=== PATIENT | female | born 1950 | race Caucasian/White ===

== ENCOUNTER → 2016-07-23 | Outpatient (CLI) | payer OTHER ==
[~2016-07-23] MED LIST: ASCO1CAP3 PO; ASPI325T45 PO; B-CO1CAP3 PO; CHOLCAP5 PO; DIAZ5TAB PO; EYE; EYED; FAMO20TA9 PO; LATA0.009 OPB; MAGN1TAB19 PO; PRED1SUS3; VGFVS/24 PV; VITA200C5 PO
== END | disposition home or self-care (01) ==
LOC: C.LAB1850 14:48
PROVIDERS: ATTEND Family Medicine
DX: M35.3 Polymyalgia rheumatica (principal)

== ENCOUNTER → 2016-09-10 | Outpatient (CLI) | payer OTHER | END | disposition home or self-care (01) | LOC: C.LAB1850 14:23 | PROVIDERS: ATTEND Family Medicine | DX: M35.3 Polymyalgia rheumatica (principal) ==

== ENCOUNTER → 2016-11-20 | Outpatient (CLI) | payer OTHER | END | disposition home or self-care (01) | LOC: C.LAB1850 13:54 | PROVIDERS: ATTEND Family Medicine | DX: M35.3 Polymyalgia rheumatica (principal) ==

== ENCOUNTER → 2016-12-12 | Outpatient (CLI) | payer OTHER ==
--- NOTE | 2016-12-13 14:34 | MAMMOGRAPHY REPORT ---
BILATERAL DIGITAL SCREENING MAMMOGRAM WITH CAD: 12/12/2016 CLINICAL HISTORY: Routine screening. TECHNIQUE: Bilateral CC and MLO views were obtained. Current study was also evaluated with a Compute r Aided Detection (CAD) system. COMPARISON: Comparison is made to exams dated: 11/21/2015 mammogram, 11/15/2014 mammogram, 11/10/2013 rhea mogram, 11/03/2012 mammogram, 10/29/2011 mammogram, and 10/23/2010 mammogram - [facility]. BREAST COMPOSITION: The tissue of both breasts is extremely dense, which lowers the sensitivity of m ammography. FINDINGS: There are several bilateral benign-appearing calcifications. Stable scattered and grouped punctate microcalcifications in the lateral left breast. No suspicious mass, architectural distortio n or cluster of suspicious microcalcifications is seen. IMPRESSION: ACR BI-RADS CATEGORY 1: NEGATIVE There is no mammographic evidence of malignancy. A 1 year screening mammogram is recommended. The pa tient will receive written notification of the results. Approximately 10% of breast cancers are not detected with mammography. A negative mammographic report should not delay biopsy if a clinically suggestive mass is present. Nicole Weiss M.D. ay/:12/12/2016 16:19:35 [employer] Production: Angela BRITO(R)(M), [facility] letter sent: Normal 1/2 BI-RADS Code: ACR BI-RADS Category 1: Negative
== END | disposition home or self-care (01) ==
LOC: C.MAMM 13:10
PROVIDERS: ATTEND Obstetrics & Gynecology
DX: Z12.31 Encounter for screening mammogram for malignant neoplasm of breast (principal)

== ENCOUNTER → 2017-02-27 | Outpatient (CLI) | payer OTHER ==
[2017-02-27 17:52] LABS: BLOOD UREA NITROGEN 17 mg/dl (7-18); BUN/CREATININE RATIO 23.9 (10-20); C-REACTIVE PROTEIN < 0.29 mg/dl (0-0.29); CALCIUM 8.7 mg/dl (8.5-10.1); CARBON DIOXIDE 35 mmol/L (21-32); CHLORIDE 98 mmol/L (98-107); CREATININE 0.72 mg/dl (0.60-1.20); GLUCOSE 93 mg/dl (70-99); POTASSIUM 3.4 mmol/L (3.5-5.1); SODIUM 135 mmol/L (136-145)
== END | disposition home or self-care (01) ==
LOC: C.LAB1850 14:47
PROVIDERS: ATTEND Family Medicine
DX: M35.3 Polymyalgia rheumatica (principal); I10 Essential (primary) hypertension

== ENCOUNTER → 2017-04-03 | Outpatient (CLI) | payer OTHER | END | disposition home or self-care (01) | LOC: C.LAB1850 14:31 | PROVIDERS: ATTEND Family Medicine | DX: M35.3 Polymyalgia rheumatica (principal) ==

== ENCOUNTER → 2017-04-12 | Outpatient (CLI) | payer OTHER | END | disposition home or self-care (01) | LOC: C.PAPS 16:17 | PROVIDERS: ATTEND Obstetrics & Gynecology | DX: Z12.4 Encounter for screening for malignant neoplasm of cervix (principal) ==

== ENCOUNTER → 2017-06-07 | Outpatient (CLI) | payer OTHER | END | disposition home or self-care (01) | LOC: C.LAB1850 13:08 | PROVIDERS: ATTEND Family Medicine | DX: M35.3 Polymyalgia rheumatica (principal) ==

== ENCOUNTER → 2017-06-26 | Outpatient (CLI) | payer OTHER | END | disposition home or self-care (01) | LOC: C.LABSPEC 17:07 | PROVIDERS: ATTEND Podiatrist Foot & Ankle Surgery | DX: L60.0 Ingrowing nail (principal) ==

== ENCOUNTER → 2017-07-31 | Outpatient (CLI) | payer OTHER | END | disposition home or self-care (01) | LOC: C.LAB1850 15:01 | PROVIDERS: ATTEND Family Medicine | DX: M35.3 Polymyalgia rheumatica (principal) ==

== ENCOUNTER 2018-01-26 22:46 | Emergency (ER) | payer OTHER ==
[~2018-01-26] VITALS: Ht 157.5 cm; Wt 44.2 kg
[~2018-01-26 22:46] MED LIST changes: +ACET-1256 PO; +ASPECOTC PO; -ASPI325T45 PO; +DORZ1SOL6 OPL; +ESTR10TA3 PO; -EYE; -EYED; +HYDR12.56 PO; -LATA0.009 OPB; +LISI10TA PO; -MAGN1TAB19 PO; +PRED-301 PO; -PRED1SUS3; +VALS-57 PO; -VGFVS/24 PV; -VITA200C5 PO; +VITACAP37 PO; +XLTOPS OPB; +[UNRECOGNIZED DRUG - OTHER] PO
[2018-01-26 22:48] VITALS: TEMP 36.6; Ht 157.5 cm; Wt 44.2 kg
[2018-01-26] MEDS ORDERED: LISI-726 PO (23:06)
[2018-01-26] MEDS ORDERED: LISINOPRIL 20 MG TAB PO STA (23:08)
[2018-01-26] MEDS ORDERED: LABETALOL HCL IV 5 MG/ML 20ML IV STA (23:08)
[2018-01-26] MEDS ORDERED: PRD/1 PO (23:09)
--- NOTE | 2018-01-26 23:25 | EMERGENCY ROOM VISIT NOTE ---
History Report prepared by Lissy: Rafal Samuel Under the Supervision of: Dr. Lucas Marin M.D. First contact with patient: 22:55 Chief Complaint: HYPERTENSION Stated Complaint: HBP History of Present Illness The patient is a 67 year old female who presents to the Emergency Room with complaints of constant hypertension that began today. Patient states she believes her symptoms might be due to missing her morning dose of 20mg Lisinopril. She states she took it this morning with a soda but might have "backwashed it back into the cup". She states she typically takes 20mg in the morning and 20mg in the evening. She states she did take her evening dose. Patient is present with her . He states the patient's blood pressure was "195/110" 3 hours ago prior to taking her evening dose. He states following her evening dose of Lisinopril her blood pressure was "205/117". Patient states she was started on 40mg of Lisinopril 5 days ago after having negative side effects on her other blood pressure medications. Past medical history includes hypertension and "balance issues". Family history includes hypertension and heart attacks. Patient states her father had a heart attack in his "40's". Patient states her last labs were done 2 weeks ago. 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 Patient states she has smoked for the past 40 years. She adds she drinks "one light beer a day" but denies drinking one tonight. Patient denies chest pain, weakness, headaches, swelling, recent falls , abdominal pain, urinary symptoms, and odd chemical exposure. Source of History: patient, spouse/significant other Onset: Today Position: head Timing: intermittent Modifying Factors (Relieving): other (None) Associated Symptoms: No headache, No chest pain, No abdominal pain, No urinary symptoms, No weakness Note: Negative swelling, recent falls, and odd chemical exposure. Review of Systems See HPI for pertinent positives & negatives. A total of 10 systems reviewed and were otherwise negative. Past Medical & Surgical Medical Problems: (1) HTN (hypertension) Family History FH: heart attack Hypertension Social History Smoking Status: Light Tobacco Smoker Marital Status: Housing Status: lives with family Occupation Status: employed Current/Historical Medications Scheduled Ascorbic Acid (Vitamin C), 1-2 CAP PO QAM Aspirin (Aspirin), 1 TAB PO QAM B-Complex Vitamins (B Complex), 1 CAP PO QPM Cholecalciferol (Vitamin D3), 1 CAP PO DAILY Diazepam (Valium), 2.5 MG PO HS Dorzolamide Hcl-Timolol Maleat (Cosopt Oph), 1 DROPS OPL DAILY Estradiol Vaginal (Yuvafem), 1 TAB PO 2XWK Famotidine (Pepcid), 20 MG PO DAILY Hydrochlorothiazide (Hctz), 12.5 MG PO DAILY Latanoprost (Latanoprost), 1 DROP OPB DAILY Lisinopril (Lisinopril), 20 MG PO BID Prednisone (Prednisone), 4 MG PO DAILY Valsartan (Valsartan), 80 MG PO DAILY Vitamin E (E-400), 400 UNITS PO DAILY Allergies Coded Allergies: Copper Chloride (Verified Allergy, Severe, RED PUSTULES AT SITE, 01/26/18) Adhesives (Verified Allergy, Unknown, RASH, 01/26/18) Metronidazole (Verified Allergy, Unknown, NAUSEA AND VOMITING, 01/26/18) Uncoded Allergies: NICKEL (Allergy, Severe, PUSTULES AT SITE, 11/29/17) Physical Exam Vital Signs Date Time Temp Pulse Resp B/P (MAP) Pulse Ox O2 Delivery O2 Flow Rate FiO2 01/27/18 00:58 68 18 181/86 98 01/26/18 23:56 72 170/92 01/26/18 23:38 77 18 179/90 97 Room Air 01/26/18 23:29 88 01/26/18 22:48 36.6 105 16 198/115 99 Room Air Physical Exam GENERAL: Patient is well appearing, smells heavily of tobacco smoke, and is mildly anxious. EYES: No scleral icterus, unremarkable pupils. ENT: Mucous membranes moist, no nasal congestion. NECK: No masses appreciated, no meningismus, trachea is midline. RESPIRATORY: No dyspnea. Clear to auscultation and equal bilaterally. No wheeze , no rhonchi. CARDIOVASCULAR: Regular rate and rhythm. No murmurs, rubs, gallops appreciated. GASTROINTESTINAL: Abdomen soft, nontender, no peritonitis. Bowel sounds positive. No masses appreciated. BACK: No midline tenderness, no CVA tenderness EXTREMITIES: Normal motion all extremities, no cyanosis, no edema. NEUROLOGIC: Alert and oriented, no acute motor or sensory deficits, no focal weakness, cranial nerves grossly intact. SKIN: No rash, no jaundice, no diaphoresis. Medical Decision & Procedures Laboratory Results 01/26/18 23:32 Red Blood Count 5.21, Mean Corpuscular Volume 93.9, Mean Corpuscular Hemoglobin 33.4, Mean Corpuscular Hemoglobin Concent 35.6, Mean Platelet Volume 9.7, Neutrophils (%) (Auto) 59.9, Lymphocytes (%) (Auto) 20.7, Monocytes (%) (Auto) 16.7, Eosinophils (%) (Auto) 1.6, Basophils (%) (Auto) 1.0, Neutrophils # (Auto ) 4.91, Lymphocytes # (Auto) 1.70, Monocytes # (Auto) 1.37, Eosinophils # (Auto ) 0.13, Basophils # (Auto) 0.08 01/26/18 23:32 Test 01/26/18 23:32 White Blood Count 8.20 K/uL (4.8-10.8) Red Blood Count 5.21 M/uL (4.2-5.4) Hemoglobin 17.4 g/dL (12.0-16.0) Hematocrit 48.9 % (37-47) Mean Corpuscular Volume 93.9 fL (80-100) Mean Corpuscular Hemoglobin 33.4 pg (25-34) Mean Corpuscular Hemoglobin Concent 35.6 g/dl (32-36) Platelet Count 287 K/uL (130-400) Mean Platelet Volume 9.7 fL (7.4-10.4) Neutrophils (%) (Auto) 59.9 % Lymphocytes (%) (Auto) 20.7 % Monocytes (%) (Auto) 16.7 % Eosinophils (%) (Auto) 1.6 % Basophils (%) (Auto) 1.0 % Neutrophils # (Auto) 4.91 K/uL (1.4-6.5) Lymphocytes # (Auto) 1.70 K/uL (1.2-3.4) Monocytes # (Auto) 1.37 K/uL (0.11-0.59) Eosinophils # (Auto) 0.13 K/uL (0-0.5) Basophils # (Auto) 0.08 K/uL (0-0.2) RDW Standard Deviation 43.0 fL (36.4-46.3) RDW Coefficient of Variation 12.5 % (11.5-14.5) Immature Granulocyte % (Auto) 0.1 % Immature Granulocyte # (Auto) 0.01 K/uL (0.00-0.02) Anion Gap 7.0 mmol/L (3-11) Est Creatinine Clear Calc Drug Dose 59.3 ml/min Estimated GFR () 107.4 Estimated GFR (Non- 92.7 BUN/Creatinine Ratio 14.2 (10-20) Calcium Level 9.2 mg/dl (8.5-10.1) Total Bilirubin 0.3 mg/dl (0.2-1) Aspartate Amino Transf (AST/SGOT) 18 U/L (15-37) Alanine Aminotransferase (ALT/SGPT) 18 U/L (12-78) Alkaline Phosphatase 68 U/L (45-117) Troponin I < 0.015 ng/ml (0-0.045) Total Protein 7.9 gm/dl (6.4-8.2) Albumin 4.0 gm/dl (3.4-5.0) Globulin 3.9 gm/dl (2.5-4.0) Albumin/Globulin Ratio 1.0 (0.9-2) Laboratory results as reviewed by me. Medications Administered Medications (Trade) Dose Ordered Sig/Ramsey Route Start Time Stop Time Status Last Admin Dose Admin Labetalol HCl (Normodyne IV) 10 mg NOW STAT IV 01/26/18 23:08 01/26/18 23:11 DC 01/26/18 23:08 10 MG Lisinopril (Zestril Tab) 20 mg NOW STAT PO 01/26/18 23:08 01/26/18 23:11 DC 01/26/18 23:36 20 MG Labetalol HCl (Normodyne IV) 10 mg NOW STAT IV 01/27/18 00:30 01/27/18 00:31 DC 01/27/18 00:41 10 MG ECG Per My Interpretation Indication: other (Hypertension) Rate (beats per minute): 91 Rhythm: normal sinus Findings: no acute ischemic change, no ectopy, other (Enlarged P-waves ; QTc = 437) Comparison ECG Date: 12/08/2017 Change: no significant change ED Course 2257: The patient was evaluated in room B8. A complete history and physical exam was performed. 0036: I reevaluated the patient. She currently has a blood pressure of 190/100. She notes she feels fine other than having sinus congestion which states is secondary to the rain we just had. Patient is agreeable to another dose of Labetalol and states she feels comfortable leaving shortly after. I advised the patient to begin taking her Hydrochlorothiazide 12.5mg in the morning. She notes previous side effects to Hydrochlorothiazide were just due to her not feeling herself and states she was on it for years prior. Patient believes she has an appointment with her PCP next week. She is agreeable to returning to the ER or calling 911 if she begins experiencing headaches, weakness, chest pain, SOB, or other concerns. Patient has a follow-up appointment with neurology tomorrow morning. Discussed results and discharge instructions. She verbalized understanding and agreement. Medical Decision Differential: Benign Hypertension, Hypertensive Urgency/Emergency, Cardiovascular Pathology, Endocrine, Metabolic/Electrolyte, Renal Disease, End- organ Damage, amongst other pathologies entertained. 67 yr old female with long history of HTN who likely missed morning dose lisinopril and is now quite hypertensive without any symptoms. EKG unchanged, labs unremarkable and she looks well. BP coming down nicely and given extra dose lisinopril here. She is feeling well and wishing to get home. She is adamant she will not be admitted to hospital. We discussed restarting HCTZ and seeing if that helps with BP as well as for her to monitor for side effects. Reviewed symptoms requiring RTED. Stable and looks well at discharge. Head Trauma GCS Score: 15 Medication Reconcilliation Current Medication List: was personally reviewed by me Blood Pressure Screening Patient's blood pressure: Elevated blood pressure Blood pressure disposition: Referred to PCP Impression Primary Impression: Severe hypertension Scribe Attestation The scribe's documentation has been prepared under my direction and personally reviewed by me in its entirety. I confirm that the note above accurately reflects all work, treatment, procedures, and medical decision making performed by me. Departure Information Dispostion Home / Self-Care Referrals Don Sparks III, M.D. (PCP) Patient Instructions ED Hypertension Conf Out Of Control, My [facility] Additional Instructions Please restart you Hydrochlorothiazide 12.5mg in the morning and take it daily unless side effects develop. Your blood pressure was elevated during this visit. This is quite common in many people who are being evaluated in the Emergency Department for many reasons. However, it is important that you have your Primary Care Provider recheck your blood pressure and discuss whether treatment will be needed. residential elevated blood pressure can lead to strokes, heart attacks, kidney failure amongst other medical issues. If you develop severe headaches, chest pain, weakness in arms or legs, or other concerning symptoms call 911.
[2018-01-26 23:49] LABS: BASO ABS # 0.08 K/uL (0-0.2); EOS % 1.6 %; EOS ABS # 0.13 K/uL (0-0.5); HEMATOCRIT 48.9 % (37-47); HEMOGLOBIN 17.4 g/dL (12.0-16.0); IG# 0.01 K/uL (0.00-0.02); LYMPH % 20.7 %; MEAN CELL VOLUME 93.9 fL (80-100); MEAN CORPUSCULAR HEMOGLOBIN 33.4 pg (25-34); MEAN CORPUSCULAR HGB CONC 35.6 g/dl (32-36); MEAN PLATELET VOLUME 9.7 fL (7.4-10.4); MONO % 16.7 %; MONO ABS # 1.37 K/uL (0.11-0.59); NEUT % 59.9 %; NEUT ABS # 4.91 K/uL (1.4-6.5); PLATELET COUNT 287 K/uL (130-400); RED CELL DISTRIBUTION WIDTH CV 12.5 % (11.5-14.5)
[2018-01-27 00:14] LABS: ALKALINE PHOSPHATASE 68 U/L (45-117); ALT/SGPT 18 U/L (12-78); AST/SGOT 18 U/L (15-37); BLOOD UREA NITROGEN 9 mg/dl (7-18); CALCIUM 9.2 mg/dl (8.5-10.1); CARBON DIOXIDE 28 mmol/L (21-32); CREATININE 0.66 mg/dl (0.60-1.20); GLUCOSE 106 mg/dl (70-99); POTASSIUM 3.5 mmol/L (3.5-5.1); SODIUM 137 mmol/L (136-145); TOTAL PROTEIN 7.9 gm/dl (6.4-8.2)
[2018-01-27] MEDS ORDERED: LABETALOL HCL IV 5 MG/ML 20ML IV STA (00:30)
[2018-01-27 00:58] VITALS: BP 181/86; PULSE 68; O2SAT 98
== END 2018-01-27 01:00 | disposition home or self-care (01) ==
LOC: C.EDB 22:47
DX: I10 Essential (primary) hypertension (principal); F17.200 Nicotine dependence, unspecified, uncomplicated; Z79.82 Long term (current) use of aspirin; Z82.49 Family history of ischemic heart disease and other diseases of the circulatory system; Z91.048 Other nonmedicinal substance allergy status; Z88.1 Allergy status to other antibiotic agents

== ENCOUNTER 2018-02-06 18:11 | Emergency (ER) | payer OTHER ==
[~2018-02-06] VITALS: Ht 157.5 cm; Wt 44.0 kg
[~2018-02-06 18:11] MED LIST changes: -ACET-1256 PO; +LISI-726 PO; -LISI10TA PO; +PRD/1 PO; -PRED-301 PO; -[UNRECOGNIZED DRUG - OTHER] PO
[2018-02-06 18:19] VITALS: TEMP 36.9; Ht 157.5 cm; Wt 44.0 kg
--- NOTE | 2018-02-06 19:36 | EMERGENCY ROOM VISIT NOTE ---
History Report prepared by Lissy: Darcy Barrientos Under the Supervision of: Dr. Riley Mcdowell M.D. First contact with patient: 18:52 Chief Complaint: HYPERTENSION Stated Complaint: HIGH BLOOD PRESSURE;DOC REFERRED History of Present Illness The patient is a 67 year old white female with a past medical history of HTN who presents to the ED with a cc of an episode of elevated blood pressure beginning today. She notes recent medication changes: she stopped taking Metoprolol a few days ago and began taking Hydrochlorothiazide at that time. The patient reports she is still taking Lisinopril twice a day, which has not changed recently. She states she was referred to the ED by someone she spoke to on the phone at her doctor's office, who told her to be seen if her BP did not lower. The patient denies CP or SOB. She denies a history of kidney issues or thyroid issues. She also denies drug or caffeine use, and states she smokes 1/2 a pack or less of cigarettes per day. She notes recent stress due to changing her BP medications, but denies other stressors. The patient has an appointment with her PCP tomorrow. Source of History: patient Onset: today Position: chest Quality: other (elevated blood pressure) Timing: other (episode) Associated Symptoms: No chest pain, No SOB Review of Systems See HPI for pertinent positives and negatives. A total of ten systems were reviewed and were otherwise negative. Past Medical & Surgical Medical Problems: (1) HTN (hypertension) Family History FH: heart attack Hypertension Social History Smoking Status: Current Every Day Smoker (1/2 pack per day) Marital Status: Housing Status: lives with family Occupation Status: employed Current/Historical Medications Scheduled Ascorbic Acid (Vitamin C), 1-2 CAP PO QAM Aspirin (Aspirin), 1 TAB PO QAM B-Complex Vitamins (B Complex), 1 CAP PO QPM Cholecalciferol (Vitamin D3), 1 CAP PO DAILY Diazepam (Valium), 2.5 MG PO HS Dorzolamide Hcl-Timolol Maleat (Cosopt Oph), 1 DROPS OPL DAILY Estradiol Vaginal (Yuvafem), 1 TAB PO 2XWK Famotidine (Pepcid), 20 MG PO DAILY Hydrochlorothiazide (Hctz), 12.5 MG PO DAILY Latanoprost (Latanoprost), 1 DROP OPB DAILY Lisinopril (Lisinopril), 20 MG PO BID Prednisone (Prednisone), 4 MG PO DAILY Valsartan (Valsartan), 80 MG PO DAILY Vitamin E (E-400), 400 UNITS PO DAILY Allergies Coded Allergies: Copper Chloride (Verified Allergy, Severe, RED PUSTULES AT SITE, 01/26/18) Adhesives (Verified Allergy, Unknown, RASH, 01/26/18) Metronidazole (Verified Allergy, Unknown, NAUSEA AND VOMITING, 01/26/18) Uncoded Allergies: NICKEL (Allergy, Severe, PUSTULES AT SITE, 11/29/17) Physical Exam Vital Signs Date Time Temp Pulse Resp B/P (MAP) Pulse Ox O2 Delivery O2 Flow Rate FiO2 02/06/18 20:45 66 18 167/62 98 02/06/18 19:53 84 16 189/97 100 Room Air 02/06/18 18:19 36.9 93 17 184/94 99 Room Air Physical Exam GENERAL: Awake, alert, well-appearing, NAD HENT: Normocephalic, atraumatic. EYES: Normal conjunctiva. Sclera non-icteric. PERRL. No anisocoria. NECK: Supple. No nuchal rigidity. FROM. RESPIRATORY: CTAB, no rhonchi, wheezing, crackles CARDIAC: RRR, no MRG ABDOMEN: Soft, NTND, BS+ MSK: No chest wall TTP, no LE edema NEURO: GCS 15, CN 2-12 intact, moves all 4s on command SKIN: No rash or jaundice noted. Medical Decision & Procedures ED Course 1911: The patient was evaluated in room B6. A complete history and physical exam was performed. 2125: I reevaluated the patient. Discussed results and discharge instructions: she verbalized understanding and agreement. The patient is ready for discharge. Medical Decision Nursing notes reviewed. Ancillary studies and prior records reviewed. The patient is a 67 year old white female with a past medical history of HTN who presents to the ED with a cc of an episode of elevated blood pressure beginning today Differential diagnosis: Etiologies such as benign hypertension, hypertensive emergency, cardiovascular pathology, pheochromocytoma, electrolyte abnormality, renal disease, endorgan damage, as well as others were entertained. Patient was seen and evaluated the bedside. Patient was referred as she is spoken to somebody at her doctor's office who stated that if her blood pressure did not improve she should present to have her blood pressure lowered. The patient does not complain of severe headache. Patient states that she has a headache around her sinus areas. The patient has been using saline spray. Of note the patient has been using phenylephrine as a saline spray. Patient was told to stop using this as this may be causing some rebound congestion as well as some increased blood pressure. Patient also does smoke. I did discuss that continuing to attempt to stop using tobacco would also improve her blood pressure medications. The patient also recently stopped taking her metoprolol. The patient's current blood pressure is 180/90. The patient is otherwise asymptomatic and has a nonfocal neurologic exam and no chest pain. I do not believe she requires imaging. I did attempt to obtain outpatient blood work which she said was obtained earlier today. There are no recent results but recently her blood work looks fairly unremarkable as her blood work in November shows that she has a normal white count fairly normal H&H and normal kidney function. I did discuss the patient's medications with the pharmacist. The patient states that she is only been taking her lisinopril 20 mg twice daily as well as hydrochlorothiazide 12.5 mg daily. Patient is not taking her Toprol. I discussed with the patient that she could go up to taking 25 mg daily of her hydrochlorothiazide. Patient was also counseled on smoking cessation. Patient does have a follow-up with her PCP tomorrow. Patient was given strict follow-up , discharge, and return precautions. All questions were answered. Patient was deemed suitable for outpatient follow-up at this time. Patient agreed with the plan of care and was safely discharged home. Medication Reconcilliation Current Medication List: was personally reviewed by me Blood Pressure Screening Patient's blood pressure: Elevated blood pressure Blood pressure disposition: Referred to PCP Impression Primary Impression: HTN (hypertension) Additional Impression: Encounter for smoking cessation counseling Scribe Attestation The scribe's documentation has been prepared under my direction and personally reviewed by me in its entirety. I confirm that the note above accurately reflects all work, treatment, procedures, and medical decision making performed by me. Departure Information Dispostion Home / Self-Care Referrals Don Sparks III, M.D. (PCP) Forms HOME CARE DOCUMENTATION FORM, IMPORTANT VISIT INFORMATION, WORK / SCHOOL INSTRUCTIONS Patient Instructions ED Smoking Cessation, My [facility] Additional Instructions Please return to the emergency department if you have worsening or recurrent symptoms not amenable to at-home treatment. Please call for a follow-up appointment with her primary care physician. Please take your medications as prescribed. If you have other concerns and/or complaints please feel free to also call your primary care physician's office or return the ED for further evaluation, management, and treatment. You were found to have an elevated blood pressure today (>120 sytolic or >90 diastolic). Per medicare guidelines, you need to follow up with this blood pressure screening with your Primary Care Physician (PCP). For a new PCP call [phone]. You may take tylenol 650 mg every 6 hours as needed for pain/fever unless told by your physician to not take it or have liver problems. You may consider taking 25 mg of hydrochlorothiazide which is double your normal dose of 12.5 mg. These follow-up with your PCP. Consider smoking cessation. Take your medications as prescribed. . You have been examined and treated today on an emergency basis only. This is not a substitute for, or an effort to provide, complete comprehensive medical care. It is impossible to recognize and treat all injuries or illnesses in a single emergency department visit. It is therefore important that you follow up closely with [facility], your PCP, and/or your specialist(s). Call as soon as possible for an appointment. Thank you for your time and consideration. I look forward to speaking with you again soon. Please don't hesitate to call us if you have any questions. Problem Qualifiers Primary Impression: HTN (hypertension) Hypertension type: unspecified Qualified Codes: I10 - Essential (primary) hypertension
[2018-02-06 20:45] VITALS: BP 167/62; PULSE 66; O2SAT 98
== END 2018-02-06 20:57 | disposition home or self-care (01) ==
LOC: C.EDB 18:12
DX: I10 Essential (primary) hypertension (principal); F17.200 Nicotine dependence, unspecified, uncomplicated; Z88.8 Allergy status to other drugs, medicaments and biological substances